=== PATIENT | male | born 1990 | race Caucasian/White ===

== ENCOUNTER 2021-01-19 09:43 | Emergency (ER) | payer BC, OTHER ==
[~2021-01-19] VITALS: Ht 188 cm; Wt 86.2 kg
[2021-01-19 10:13] VITALS: BP 139/82
--- NOTE | 2021-01-19 10:13 | NUR ---
pt states he feels sob. o2 sat at 98%
== END 2021-01-19 11:25 | disposition home or self-care (01) ==
LOC: ED 10:54
DX: R06.00 Dyspnea, unspecified (principal); Z20.822 Contact with and (suspected) exposure to COVID-19; R05 Cough
CPT/HCPCS: 71045; 87635; 99284